=== PATIENT | female | born 1975 | race African-American/Black ===

== ENCOUNTER 2020-11-21 15:29 | Emergency (ER) | payer MEDICAID ==
[~2020-11-21] VITALS: Ht 162.6 cm; Wt 62.0 kg
[2020-11-21] MEDS ORDERED: LEVETIRACETAM 500MG PREMIX 100 ML IV ONE (16:30)
[2020-11-21 17:10] LABS: HEMATOCRIT. 24.6 % (36.0-48.0); HEMOGLOBIN. 7.8 g/dL (12.0-16.0); MEAN CORPUSCULAR HEMOGLOBIN 19.3 pg (28.0-32.0); MEAN CORPUSCULAR VOLUME 60.9 fL (81.0-99.0); MEAN PLATELET VOLUME 7.6 fl (7.4-10.4); PLATELET 528 x1000/uL (130-400); RED BLOOD CELL COUNT 4.04 mill/uL (4.2-5.4); RED CELL DISTRIBUTION WIDTH 21.5 % (11.6-14.6)
[2020-11-21 17:16] LABS: CHLORIDE 109 mEq/L (98-107)
[2020-11-21 17:18] LABS: HCG SCREEN NEGATIVE
[2020-11-21 17:24] LABS: ETHANOL BLOOD < 10 mg/dL
[2020-11-21 17:48] LABS: CLARITY URINE CLEAR (CLEAR); COLOR URINE YELLOW (YELLOW); KETONES URINE NEGATIVE (NEGATIVE); LEUKOCYTE ESTERASE URINE NEGATIVE (NEGATIVE); NITRITE URINE NEGATIVE (NEGATIVE); OCCULT BLOOD URINE NEGATIVE (NEGATIVE); PH URINE 6.5 (4.5-8.0); PROTEIN URINE NEGATIVE (NEGATIVE); SPECIFIC GRAVITY URINE 1.012 (1.005-1.030)
[2020-11-21 17:57] LABS: *BARBITURATES SCREEN URINE NEGATIVE (NEGATIVE); *BENZODIAZEPINES SCREEN URINE NEGATIVE (NEGATIVE); CANNABINOID URINE SCREEN NEGATIVE (NEGATIVE); METHADONE URINE SCREEN NEGATIVE (NEGATIVE); OPIATES URINE SCREEN NEGATIVE (NEGATIVE); PHENCYCLIDINE URINE SCREEN NEGATIVE (NEGATIVE)
[2020-11-21 18:00] LABS: *AMPHETAMINES SCREEN URINE PRESUMTIVE POSITIVE (NEGATIVE)
[2020-11-21 18:01] LABS: *COCAINE SCREEN URINE PRESUMTIVE POSITIVE (NEGATIVE)
[2020-11-21 18:33] LABS: PLATELET ESTIMATE INCREASED
[2020-11-21] MEDS ORDERED: KEPP250 MT (22:22)
[2020-11-22 02:00] VITALS: BP 128/84
== END 2020-11-22 02:00 | disposition home or self-care (01) ==
LOC: ER 15:29
DX: G40.909 Epilepsy, unspecified, not intractable, without status epilepticus (principal); T40.5X1A Poisoning by cocaine, accidental (unintentional), initial encounter; F17.200 Nicotine dependence, unspecified, uncomplicated; Y92.9 Unspecified place or not applicable; Z88.0 Allergy status to penicillin
CPT/HCPCS: 36415; 80053; 80305; 80320; 81003; 84703; 85025; 96365; 99285; J1953; Z7610; G0480

== ENCOUNTER 2021-09-05 14:27 | Emergency (ER) | payer MEDICAID ==
[~2021-09-05] VITALS: Ht 165.1 cm; Wt 60.0 kg
[~2021-09-05 14:27] MED LIST: KEPP250 MT
[2021-09-05] MEDS ORDERED: HYDROCODONE/ACETAMINOPHEN 5/325MG TABLET PO ONE (15:00)
[2021-09-05] MEDS ORDERED: DIVALPROEX SODIUM 250MG DR TABLET PO ONE (15:00)
[2021-09-05 15:08] VITALS: BP 132/92
[2021-09-05] MEDS ORDERED: DIVA250T4 MT (17:40)
[2021-09-05] MEDS ORDERED: ACET-2708 MT (18:26)
== END 2021-09-05 18:44 | disposition home or self-care (01) ==
LOC: ER 14:27
DX: G40.909 Epilepsy, unspecified, not intractable, without status epilepticus (principal); F19.10 Other psychoactive substance abuse, uncomplicated; Z71.6 Tobacco abuse counseling; F17.210 Nicotine dependence, cigarettes, uncomplicated; Z88.0 Allergy status to penicillin; Z91.14 Patient's other noncompliance with medication regimen
CPT/HCPCS: 99283; 99406; Z7610